=== PATIENT | female | born 1965 | race Caucasian/White ===

== ENCOUNTER 2023-06-04 18:29 | Inpatient (IN) | payer MEDICARE, MEDICAID ==
[2023-06-04] MEDS ORDERED: Electrolyte Replacement Protocol 1 EACH FS PRN (21:13)
[2023-06-04] MEDS ORDERED: Ondansetron ODT 4 MG TAB PO PRN (21:14)
[2023-06-04] MEDS ORDERED: Acetaminophen 325 MG TAB PO PRN (21:14)
[2023-06-04] MEDS ORDERED: Senokot S 8.6-50 MG TAB PO PRN (21:14)
[2023-06-04] MEDS ORDERED: Calcium Carbonate 500 MG ChewTAB PO PRN (21:14)
[2023-06-04] MEDS: Lactated Ringer's 1,000 ML IV SCH (21:29)
[2023-06-05 01:30] VITALS: BMI 16.5
[2023-06-05 02:08] LABS: #Monocytes 0.3 thou/uL (0.11-0.59); #Neutrophils 7.1 thou/uL (1.40-6.50); %Basophils 0.1 % (0.0-1.0); %Lymphocytes 16.6 % (21.0-51.0); %Monocytes 3.6 % (0.0-10.0); %Neutrophils 78.8 % (42.0-75.0); Hematocrit 36.3 % (36.0-47.0); Hemoglobin 13.1 g/dL (12.0-16.0); Mean Corpuscular HGB CONC 36.1 g/dL (32.0-36.0); Mean Corpuscular Hemoglobin 34.1 pg (27.0-31.0); Mean Corpuscular Volume 94.5 fl (78.0-98.0); Mean Platelet Volume 9.2 fL (7.4-10.4); Platelet Count 302 10x3/uL (130-400); RBC Distribution Width 14.1 % (11.5-14.5); Red Blood Cell (RBC) Count 3.84 mill/uL (4.20-5.40); White Blood Cell (WBC) Count 9.1 10x3/uL (4.8-10.8)
[2023-06-05 02:30] LABS: Anion Gap 17 mmol/L (10-20); BUN (Urea Nitrogen) 9 mg/dL (9.8-20.1); CK (CPK) 1358 U/L (29-168); Calc. Creatinine Clearance 46 mL/min (70-130); Carbon Dioxide 23 mmol/L (22-29); Chloride 93 mmol/L (98-107); Estimated GFR 63; Glucose 140 mg/dL (70-105); Potassium 3.7 mmol/L (3.5-5.1); Sodium 129 mmol/L (136-145)
[2023-06-05 02:48] LABS: Thyroid Stimulating Hormone 25.2095 uIU/mL (0.35-4.94)
[2023-06-05 05:56] LABS: Free T4 (Free Thyroxine) Less than 0.40 ng/dL (0.70-1.48)
[2023-06-05] MEDS: Lactated Ringer's 1,000 ML IV SCH (06:38)
[2023-06-05] MEDS: Levothyroxine Sodium 75 MCG TAB PO SCH (06:42)
[2023-06-05] MEDS: Famotidine 20 MG TAB PO SCH ×2 (10:25→21:23)
[2023-06-05 17:55] LABS: #Monocytes 0.9 thou/uL (0.11-0.59); #Neutrophils 7.2 thou/uL (1.40-6.50); %Basophils 0.1 % (0.0-1.0); %Eosinophils 0.4 % (0.0-10.0); %Lymphocytes 28.4 % (21.0-51.0); %Monocytes 7.7 % (0.0-10.0); %Neutrophils 62.8 % (42.0-75.0); Hematocrit 35.9 % (36.0-47.0); Hemoglobin 12.9 g/dL (12.0-16.0); Mean Corpuscular HGB CONC 35.9 g/dL (32.0-36.0); Mean Corpuscular Volume 94.7 fl (78.0-98.0); Mean Platelet Volume 9.3 fL (7.4-10.4); Platelet Count 299 10x3/uL (130-400); RBC Distribution Width 14.2 % (11.5-14.5); Red Blood Cell (RBC) Count 3.79 mill/uL (4.20-5.40); White Blood Cell (WBC) Count 11.4 10x3/uL (4.8-10.8)
[2023-06-05 18:16] LABS: Anion Gap 13 mmol/L (10-20); BUN (Urea Nitrogen) 8 mg/dL (9.8-20.1); Calc. Creatinine Clearance 48 mL/min (70-130); Calcium 9.1 mg/dL (7.8-10.44); Carbon Dioxide 25 mmol/L (22-29); Chloride 95 mmol/L (98-107); Estimated GFR 67; Glucose 130 mg/dL (70-105); Potassium 3.8 mmol/L (3.5-5.1); Sodium 129 mmol/L (136-145)
[2023-06-05 19:15] LABS: Magnesium 1.9 mg/dL (1.6-2.6)
[2023-06-05 19:19] LABS: Phosphorus 1.4 mg/dL (2.3-4.7)
[2023-06-05] MEDS ORDERED: Magnesium 2 GM/50 ML(in water) 2 GM in Premix Bag 1 BAG IVPB SCH (20:00)
[2023-06-05] MEDS: PHOS-NAK 1 PKT PACK PO SCH (21:22)
[2023-06-06] MEDS: PHOS-NAK 1 PKT PACK PO SCH ×3 (00:05→08:31)
[2023-06-06 03:25] LABS: Bacteria/HPF None Seen HPF (None Seen); Bilirubin Negative (Negative); Blood, Urine Negative (Negative); Clarity Clear (Clear); Glucose, Urine (Dipstick) Normal (Negative); Ketone, Urine Negative (Negative); Leukocyte Negative Leu/uL (Negative); Nitrite Negative (Negative); Protein, Urine (Dipstick) Negative (Neg-Trace); RBC/HPF None Seen HPF (0-3); Specific Gravity, Urine 1.003 (1.002-1.036); Squamous Epithelial 0-3 HPF (0-3); Urobilinogen Normal mg/dL (Less than 2); WBC/HPF 0-3 HPF (0-3)
[2023-06-06] MEDS: Sodium Chloride 0.9% 1,000 ML IV SCH ×2 (03:45→12:14)
[2023-06-06] MEDS: Levothyroxine Sodium 75 MCG TAB PO SCH (05:27)
[2023-06-06] MEDS: Famotidine 20 MG TAB PO SCH ×2 (08:32→20:46)
[2023-06-06 10:46] LABS: #Basophils 0.1 thou/uL (0.0-0.2); #Eosinphils 0.1 thou/uL (0.0-0.7); #Neutrophils 10.1 thou/uL (1.40-6.50); %Basophils 0.3 % (0.0-1.0); %Eosinophils 0.4 % (0.0-10.0); %Lymphocytes 22.7 % (21.0-51.0); %Monocytes 6.7 % (0.0-10.0); %Neutrophils 69.1 % (42.0-75.0); Hematocrit 39.7 % (36.0-47.0); Hemoglobin 13.9 g/dL (12.0-16.0); Mean Corpuscular Hemoglobin 34.4 pg (27.0-31.0); Platelet Count 282 10x3/uL (130-400); Red Blood Cell (RBC) Count 4.04 mill/uL (4.20-5.40); White Blood Cell (WBC) Count 14.6 10x3/uL (4.8-10.8)
[2023-06-06 11:00] LABS: Anion Gap 16 mmol/L (10-20); BUN (Urea Nitrogen) 6 mg/dL (9.8-20.1); Calc. Creatinine Clearance 57 mL/min (70-130); Calcium 8.6 mg/dL (7.8-10.44); Carbon Dioxide 21 mmol/L (22-29); Chloride 99 mmol/L (98-107); Estimated GFR 72; Glucose 81 mg/dL (70-105); Potassium 3.9 mmol/L (3.5-5.1); Sodium 132 mmol/L (136-145)
[2023-06-06] MEDS ORDERED: Nicotine 14 MG PATCH TD SCH (11:32)
[2023-06-06 11:39] LABS: Mean Corpuscular Volume 98.3 fl (78.0-98.0)
[2023-06-07 05:30] LABS: #Basophils 0.1 thou/uL (0.0-0.2); #Eosinphils 0.1 thou/uL (0.0-0.7); #Monocytes 0.7 thou/uL (0.11-0.59); #Neutrophils 5.2 thou/uL (1.40-6.50); %Basophils 0.6 % (0.0-1.0); %Eosinophils 0.9 % (0.0-10.0); %Neutrophils 52.7 % (42.0-75.0); Hemoglobin 14.6 g/dL (12.0-16.0); Mean Corpuscular HGB CONC 34.8 g/dL (32.0-36.0); Mean Corpuscular Hemoglobin 34.2 pg (27.0-31.0); Mean Corpuscular Volume 98.4 fl (78.0-98.0); Platelet Count 331 10x3/uL (130-400); RBC Distribution Width 15.2 % (11.5-14.5); Red Blood Cell (RBC) Count 4.27 mill/uL (4.20-5.40); White Blood Cell (WBC) Count 9.9 10x3/uL (4.8-10.8)
[2023-06-07 06:03] LABS: Anion Gap 13 mmol/L (10-20); BUN (Urea Nitrogen) 6 mg/dL (9.8-20.1); Calc. Creatinine Clearance 56 mL/min (70-130); Calcium 9.2 mg/dL (7.8-10.44); Carbon Dioxide 24 mmol/L (22-29); Chloride 100 mmol/L (98-107); Estimated GFR 71; Glucose 73 mg/dL (70-105); Potassium 3.8 mmol/L (3.5-5.1); Sodium 133 mmol/L (136-145)
[2023-06-07 06:09] LABS: Phosphorus 2.4 mg/dL (2.3-4.7)
[2023-06-07] MEDS: Levothyroxine Sodium 75 MCG TAB PO SCH (06:29)
[2023-06-07] MEDS: Famotidine 20 MG TAB PO SCH (08:28)
[2023-06-07] MEDS ORDERED: Nicotine 14 MG PATCH TD SCH (12:00)
[2023-06-07 12:06] VITALS: BP 131/84; TEMP 98.1
== END 2023-06-07 14:45 | disposition home or self-care (01) | DRG 643 ==
LOC: INTOOBSV 18:29 → 2SW 18:29 → OBSVTOIN 06-06 09:37
PROVIDERS: ADMIT Internal Medicine Nephrology; ATTEND Internal Medicine
DX: E89.0 Postprocedural hypothyroidism (principal); E43 Unspecified severe protein-calorie malnutrition; N17.9 Acute kidney failure, unspecified; M62.82 Rhabdomyolysis; Z68.1 Body mass index [BMI] 19.9 or less, adult; E86.0 Dehydration; Z66 Do not resuscitate; F17.210 Nicotine dependence, cigarettes, uncomplicated; E87.6 Hypokalemia; Z90.710 Acquired absence of both cervix and uterus; Z98.890 Other specified postprocedural states; Z90.89 Acquired absence of other organs; Z91.148 Patient's other noncompliance with medication regimen for other reason; Z71.6 Tobacco abuse counseling
CPT/HCPCS: 36415; 71045; 80048; 81001; 83735; 83880; 84100; 84439; 84443; 85025; 87633; 96374; G0378; J3475; J7050; J7120